=== PATIENT | male | born 1950 | race Asian ===

== ENCOUNTER 2016-08-11 07:30 | Day surgery (SDC) | payer OTHER ==
--- NOTE | 2016-08-02 11:43 | PREOP ---
DATE OF ADMISSION: 08/11/2016 DATE OF DICTATION: 06/15/2016 HISTORY OF PRESENT ILLNESS: The patient is a 65-year-old man admitted through the [facility] for reduction and repair of chronically incarcerated ventral hernia. According to the patient, he has had the hernia for approximately 2 years' time. Recently it has become slightly larger in size and more symptomatic. No underlying GI, , or respiratory complaints to suggest predisposition to hernia formation. PAST MEDICAL HISTORY: Significant only for hypertension. No history of heart disease, diabetes, respiratory, renal or hepatic insufficiency. PAST SURGICAL HISTORY: Nil. ALLERGIES: None known. REGULAR MEDICATIONS: Amlodipine. SOCIAL HISTORY: Negative tobacco, negative alcohol. FAMILY HISTORY: Nil. REVIEW OF SYSTEMS: Nil. PHYSICAL EXAMINATION: Abdomen: Soft, protuberant, nontender. In the supraumbilical midline, there is a bulge which represents a chronically incarcerated ventral hernia. The umbilical ring appears intact. IMPRESSION: Chronically incarcerated ventral hernia. PLAN: Reduction and repair of chronically incarcerated ventral hernia with mesh. Indications, terms, possible complications were reviewed. Consent obtained. The patient will be seen preoperatively by Dr. Shruthi Barbour at [address] [place] [address]. Please refer to his notes for those medical details. Austin BELL/[id number] CC: Shruthi Barbour MD
[2016-08-11 08:10] VITALS: BMI 25.2
[2016-08-11] MEDS ORDERED: TAMSULOSIN HCL 0.4 MG CAP.ER.24H (FP) ONE (08:17)
[2016-08-11] MEDS ORDERED: MIDAZOLAM HCL 2 MG/2 ML SINGLE DOSE VIAL ONE (09:40)
[2016-08-11] MEDS ORDERED: PROPOFOL 20 ML ONE ×2 (09:45)
[2016-08-11] MEDS ORDERED: ROCURONIUM BROMIDE 50 MG/5 ML VIAL ONE (09:45)
[2016-08-11] MEDS ORDERED: ONDANSETRON 4 MG/2 ML VIAL ONE (09:45)
[2016-08-11] MEDS ORDERED: DEXAMETHASONE SOD PHOSPHATE 4 MG/1 ML VIAL ONE (09:45)
[2016-08-11] MEDS ORDERED: ePHEDrine SULFATE 50 MG/1 ML AMPULE ONE (10:13)
[2016-08-11] MEDS ORDERED: NEOSTIGMINE METHYLSULFATE 0.5 MG/ML - 10 ML MDV ONE (10:31)
[2016-08-11] MEDS ORDERED: KETOROLAC TROMETHAMINE 30 MG/1 ML VIAL ONE (10:51)
[2016-08-11] MEDS ORDERED: oxyCODONE HCL 5 MG TABLET ONE (13:13)
[2016-08-11] MEDS ORDERED: oxyCODONE HCL 5 MG TABLET PO PRN (13:40)
[2016-08-11] MEDS ORDERED: ONDANSETRON 4 MG/2 ML VIAL IVPUSH PRN (13:40)
[2016-08-11] MEDS ORDERED: LACTATED RINGERS SOLUTION 1,000 ML IV SCH (13:45)
--- NOTE | 2016-08-11 14:17 | OP ---
DATE OF OPERATION: 08/11/2016 PREOPERATIVE DIAGNOSIS: Incarcerated ventral hernia. POSTOPERATIVE DIAGNOSIS: Incarcerated ventral hernia. PROCEDURE: Open reduction and repair incarcerated ventral hernia with mesh/intermediate (8 cm). OPERATING SURGEON: Forrest Rivas M.D. MARKET REPORTER: Nate Martin DO ANESTHESIA: Sudarshan Aldridge MD (general) HISTORY: A 65-year-old man admitted to the hospital for reduction and repair of a chronically incarcerated ventral hernia, which is symptomatic. INDICATIONS: Alternatives and possible complications reviewed. Consent was obtained. PROCEDURE: With the patient in the supine position, and after general anesthesia, the abdomen was prepped and draped in sterile fashion using chlorhexidine. A 5 cm transverse incision was made directly over the hernia and deepened into the subcutaneous space. The hernia sac was easily encountered and cleaned to the level of the fascial ring. The fascial ring was incised circumferentially. The hernia sac with its fibrofatty contents were reduced. The retrorectus/preperitoneal space was then developed using sharp dissection, creating enough room for placement of an underlying mesh. Ultimately, a Bard Ventralux hernia patch measuring 8 cm in diameter was selected for the repair. The patch was placed in the retrorectus/preperitoneal space and pulled up against the undersurface of the anterior abdominal wall musculature using its straps. The mesh was tacked on with 0 Prolene through and through sutures, fashioning of the mesh in each quadrant to the overlying rectus muscle. After adequate hemostasis and irrigation, the anterior fascia was closed in a transverse fashion using interrupted No. 1 Vicryl sutures, leaving the mesh entirely in the retrorectus space. Subcutaneous tissues were irrigated. Adequate hemostasis ensured. The wound was closed in layers. The subcutaneous tissue was approximated using interrupted 3- 0 Chromic. 4-0 Biosyn sutures interrupted subcuticular sutures placed. The skin was closed using 4-0 Biosyn subcuticular continuous fashion. Dermabond applied. Procedure terminated. Needle and sponge count correct. ESTIMATED BLOOD LOSS: Minimal. SPECIMEN: None. DRAIN: None. IMPLANT: Bard Ventralux ST hernia patch (8 cm diameter). Austin BELL/[id number] MTDD
[2016-08-11] MEDS ORDERED: TAMSULOSIN HCL 0.4 MG CAP.ER.24H (FP) PO ONE (20:30)
[2016-08-11 22:51] VITALS: BP 141/87; PULSE 100; TEMP 98.8
== END 2016-08-11 22:56 | disposition home or self-care (01) ==
LOC: FASU 07:30
PROVIDERS: ATTEND Surgery
PROC: 0WUF0JZ Supplement Abdominal Wall with Synthetic Substitute, Open Approach (ICD-10-PCS; principal; 2016-08-11 10:15)
DX: K43.6 Other and unspecified ventral hernia with obstruction, without gangrene (principal)
CPT/HCPCS: 94010; 94760

== ENCOUNTER 2016-08-15 22:44 | Emergency (ER) | payer OTHER ==
[2016-08-15 22:53] VITALS: BMI 25.3
[2016-08-15 23:07] LABS: PH,URINE 5.5 (4.5-8); URINE APPEARANCE Clear; URINE BILIRUBIN Negative (NEGATIVE); URINE GLUCOSE (UA) Negative (NEGATIVE); URINE KETONE Negative (NEGATIVE); URINE LEUK ESTERASE Trace (NEGATIVE); URINE NITRITE Negative (NEGATIVE); URINE PROTEIN Negative (NEGATIVE); URINE UROBILINOGEN 0.2 E.U/dl (0.2-1.0)
[2016-08-15 23:08] LABS: URINE BLOOD 2+ (NEGATIVE); URINE COLOR YELLOW
--- NOTE | 2016-08-15 23:17 | PDOC ---
History of Present Illness - General Chief Complaint: Pain, Acute Stated Complaint: PAIN WITH URINATION POST HERNIA SURGERY Time Seen by Provider: 08/15/16 23:16 - History of Present Illness Initial Comments: 08/16/16 05:39 4 days post op, complains of dysuria. Small urine volumes. No BM x 1 day. Vomit x 1. Has not been able to take his anti-htn. On opioids for pain. No fever. Mild abd pain. Feet are swollen pmh: htn fhx: non-contrib ros: reviewed and otherwise negative NAD no diaphoresis nonicteric mmm nl JVP rrr cta abd distended, tympamic over upper abd, dull over lower abd, well healing periumbilical surgical scar, nontender no CVAT no groin lesions no edema nl speech, nl gait POCUS--large distended bladder barth placed by me, sterile technique, with 2L urine output plain films--full of stool, ileus versus partial sbo, as read by me, referred to radiology for definitive review fluid challenge in ED--tolerated PO without difficulty a/p post-op urinary retention. barth, leg bag, maintain adequate oral hydration ileus/ constipation--likely secondary to opioids. laxatives, adequate po hydration. return to ED for another episode of vomiting Past History - Past Medical History Allergies/Adverse Reactions: Allergies Allergy/AdvReac Type Severity Reaction Status Date / Time No Known Allergies Allergy Verified 08/15/16 22:46 Home Medications: Ambulatory Orders Amlodipine Besylate 5 mg PO HS 08/04/16 Atorvastatin Ca [Lipitor] 20 mg PO HS 08/04/16 Oxycodone HCl/Acetaminophen [Percocet 5-325 mg Tablet] 1 tab PO Q4H PRN #42 tablet MDD 6 08/11/16 Anemia: No Asthma: No Cancer: No Cardiac Disorders: No CVA: No COPD: No CHF: No Dementia: No Diabetes: No GI Disorders: No Disorders: No HTN: Yes Hypercholesterolemia: Yes Liver Disease: No Seizures: No Thyroid Disease: No - Surgical History Abdominal Surgery: No Appendectomy: No Cardiac Surgery: No Cholecystectomy: No Lung Surgery: No Neurologic Surgery: No Orthopedic Surgery: No - Psycho/Social/Smoking Cessation Hx Anxiety: No Suicidal Ideation: No Smoking History: Never smoked Have you smoked in the past 12 months: No Information on smoking cessation initiated: No Hx Alcohol Use: No Drug/Substance Use Hx: No Substance Use Type: None Hx Substance Use Treatment: No *Physical Exam - Vital Signs Last Vital Signs Temp Pulse Resp BP Pulse Ox 98 F 114 H 20 169/107 97 08/15/16 22:48 08/15/16 22:48 08/15/16 22:48 08/15/16 22:48 08/15/16 22:48 ED Treatment Course - ADDITIONAL ORDERS Additional order review: Laboratory Results 08/15/16 22:59 Urine Color Yellow Urine Appearance Clear Urine pH 5.5 Ur Specific [place] <= 1.005 Urine Protein Negative Urine Glucose (UA) Negative Urine Ketones Negative Urine Blood 2+ H Urine Nitrite Negative Urine Bilirubin Negative Urine Urobilinogen 0.2 e.u/dl Ur Leukocyte Esterase Trace *DC/Admit/Observation/Transfer Diagnosis at time of Disposition: Urinary tract obstruction Constipation Qualifiers: Constipation type: unspecified constipation type Qualified Code(s): K59.00 - Constipation, unspecified - Discharge Dispostion Disposition: HOME Condition at time of disposition: Stable - Patient Instructions Printed Discharge Instructions: DI for Constipation, How to Care for Your Barth Catheter -- Male
[2016-08-15 23:19] LABS: URINE BACTERIA FEW /hpf (NEGATIVE)
[2016-08-16 00:20] VITALS: BP 155/104; PULSE 107; TEMP 98
[2016-08-16] MEDS ORDERED: MAGNESIUM CITRATE 300 ML BOTTLE ONE (00:22)
== END 2016-08-16 00:45 | disposition home or self-care (01) ==
LOC: FER 22:44
PROC: 0T9B70Z Drainage of Bladder with Drainage Device, Via Natural or Artificial Opening (ICD-10-PCS; principal; 2016-08-15)
DX: N13.8 Other obstructive and reflux uropathy (principal); K59.03 Drug induced constipation; T40.2X5A Adverse effect of other opioids, initial encounter; Y92.018 Other place in single-family (private) house as the place of occurrence of the external cause
CPT/HCPCS: 74020-TC; 81003; 81015; 99281-25

== ENCOUNTER 2016-08-17 22:37 | Emergency (ER) | payer OTHER ==
--- NOTE | 2016-08-17 22:45 | PDOC ---
History of Present Illness - General Chief Complaint: Urinary Problem Stated Complaint: URINARY RETENTION Time Seen by Provider: 08/17/16 22:39 History Source: Patient Exam Limitations: No Limitations - History of Present Illness Initial Comments: 08/17/16 22:40 65 Y M HTN, s/p hernia repair on 08/11. urinary retention 08/15. barth removed today at 1 pm. returns c/o pain and inability to void. no fever. no n/v. Past History - Past Medical History Allergies/Adverse Reactions: Allergies Allergy/AdvReac Type Severity Reaction Status Date / Time No Known Allergies Allergy Verified 08/15/16 22:46 Home Medications: Ambulatory Orders Amlodipine Besylate 5 mg PO HS 08/04/16 Atorvastatin Ca [Lipitor] 20 mg PO HS 08/04/16 Oxycodone HCl/Acetaminophen [Percocet 5-325 mg Tablet] 1 tab PO Q4H PRN #42 tablet MDD 6 08/11/16 Anemia: No Asthma: No Cancer: No Cardiac Disorders: No CVA: No COPD: No CHF: No Dementia: No Diabetes: No GI Disorders: No Disorders: No HTN: Yes Hypercholesterolemia: Yes Liver Disease: No Seizures: No Thyroid Disease: No - Surgical History Abdominal Surgery: No Appendectomy: No Cardiac Surgery: No Cholecystectomy: No Lung Surgery: No Neurologic Surgery: No Orthopedic Surgery: No - Psycho/Social/Smoking Cessation Hx Anxiety: No Suicidal Ideation: No Smoking History: Never smoked Have you smoked in the past 12 months: No Hx Alcohol Use: No Drug/Substance Use Hx: No Substance Use Type: None Hx Substance Use Treatment: No Review of Systems - Review of Systems Able to Perform ROS?: Yes Is the patient limited [place] proficient: No Constitutional: No: Symptoms Reported Respiratory: No: Symptoms reported Cardiac (ROS): No: Symptoms Reported ABD/GI: No: Symptoms Reported : Yes: Symptoms Reported, See HPI, Dysuria Integumentary: No: Symptoms Reported All Other Systems: Reviewed and Negative *Physical Exam - Physical Exam General Appearance: Yes: Nourished, Appropriately Dressed. No: Apparent Distress Respiratory/Chest: positive: Lungs Clear Cardiovascular: positive: Regular Rhythm, Regular Rate Gastrointestinal/Abdominal: positive: Normal Bowel Sounds. negative: Tender ( after barth placement) Musculoskeletal: positive: Normal Inspection. negative: CVA Tenderness Neurologic: positive: Fully Oriented, Alert, Normal Mood/Affect, Normal Response , Motor Strength 5/5 Progress Note - Progress Note Progress Note: recurrent urinary retention (1.5 lt) keep barth f/u w/ pmd *DC/Admit/Observation/Transfer Diagnosis at time of Disposition: Urinary tract obstruction - Discharge Dispostion Disposition: HOME Condition at time of disposition: Improved - Patient Instructions Additional Instructions: KEEP BARTH CATHETER CALL YOUR DOCTOR TOMORROW RETURN IF FEVER OR NEW SYMPTOMS
[2016-08-17 22:49] VITALS: BP 152/108; PULSE 113; TEMP 97.9; BMI 25.3
== END 2016-08-17 22:58 | disposition home or self-care (01) ==
LOC: FER 22:37
PROC: 0T9B70Z Drainage of Bladder with Drainage Device, Via Natural or Artificial Opening (ICD-10-PCS; principal; 2016-08-17)
DX: N13.9 Obstructive and reflux uropathy, unspecified (principal); I10 Essential (primary) hypertension; E78.00 Pure hypercholesterolemia, unspecified
CPT/HCPCS: 99282-25

== ENCOUNTER 2016-08-20 21:41 | Emergency (ER) | payer OTHER ==
[2016-08-20 22:00] VITALS: BP 167/94; PULSE 95; TEMP 98; BMI 25.3
--- NOTE | 2016-08-20 22:09 | PDOC ---
History of Present Illness - General Chief Complaint: Urinary Problem Stated Complaint: URINARY RETENTION Time Seen by Provider: 08/20/16 21:53 History Source: Patient Exam Limitations: No Limitations - History of Present Illness Initial Comments: 08/20/16 22:06 This is a 65-year-old male who is status post bilateral hernia repair approximately 9 days ago. Patient has been to this emergency room 3 times approximately every other day since the hernia repair for acute urinary retention. Between ER visits patient does go see a urologist to removes the Jose and then patient is back the next day with urinary retention. The urologist told the patient to self catheterize until he is no longer experiencing urinary retention. Patient did catheterize himself this afternoon and there was actually 1500 mL of urine that was removed from the bladder. Patient now comes in complaining of suprapubic pain and discomfort and sensation that he needs to urinate and can't urinate. Patient said when he is able to urinate he does experience some burning and dysuria with urination. Patient denies any hematuria Family is requesting that the Jose be put back in. They also are requesting referral to a different urologist as they feel that the urologist he is seeing is not adequately addressing the problem. PAST MEDICAL HISTORY: no significant history PAST SURGICAL HISTORY: no significant history FAMILY HISTORY: no pertinant history SOCIAL HISTORY: Pt lives with family and is employed. MEDICATIONS: reviewed ALLERGIES: As per nursing notes Review of Systems General: No fevers or chills, no weakness, no weight loss HEENT: No change in vision. No sore throat,. No ear pain CardioVascular: No chest pain or shortness of breath Respiratory:No cough, or wheezing. Gastrointestinal: no nausea, vomitting, diarrhea or constipation, No rectal bleeding Genitourinary urinary retention as per history of present illness Musculoskeletal: No joint or muscle pain or swelling Neurologic: No headache, vertigo, dizziness or loss of consciousness Psychiatric: nor depression Skin: No rashes or easy bruising Endocrine: no increased thirst or abnormal weight change Allergic: no skin or latex allergy All other systems reviewed and normal GENERAL: The patient is awake, alert, and fully oriented, in no acute distress. HEAD: Normal with no signs of trauma. EYES: Pupils equal, round and reactive to light, extraocular movements intact, sclera anicteric, conjunctiva clear. ABDOMEN: There is some mild suprapubic discomfort on palpation, there is no guarding or rebound, bowel sounds are normal BACK: There is no CVA or flank tenderness. EXTREMITIES: Normal range of motion, no edema. NEUROLOGICAL: Normal speech, normal gait. PSYCH: Normal mood, normal affect. SKIN: Warm, Dry, normal turgor, no rashes or lesions noted. 08/20/16 22:19 Assessment and plan: This is a 65-year-old male who comes in with acute urinary retention. This is his third visit in approximately one week. Patient had Jose reinserted with approximately 1 L of clear urine. Urinalysis shows no evidence of infection at this time. Patient has seen his urologist and was started on Flomax. Patient had a basic metabolic profile sent which was normal with the exception of a potassium of 3.4. Patient was told to eat a banana a day for the next week and was discharged home and given referral to a different urologist as he had requested a different referral Past History - Past Medical History Allergies/Adverse Reactions: Allergies Allergy/AdvReac Type Severity Reaction Status Date / Time No Known Allergies Allergy Verified 08/17/16 22:42 Home Medications: Ambulatory Orders Amlodipine Besylate 5 mg PO HS 08/04/16 Atorvastatin Ca [Lipitor] 20 mg PO HS 08/04/16 Oxycodone HCl/Acetaminophen [Percocet 5-325 mg Tablet] 1 tab PO Q4H PRN #42 tablet MDD 6 08/11/16 Tamsulosin HCl [Flomax] 0.4 mg PO HS 08/17/16 Anemia: No Asthma: No Cancer: No Cardiac Disorders: No CVA: No COPD: No CHF: No Dementia: No Diabetes: No GI Disorders: No Disorders: No HTN: Yes Hypercholesterolemia: Yes Liver Disease: No Seizures: No Thyroid Disease: No - Surgical History Abdominal Surgery: No Appendectomy: No Cardiac Surgery: No Cholecystectomy: No Lung Surgery: No Neurologic Surgery: No Orthopedic Surgery: No - Psycho/Social/Smoking Cessation Hx Anxiety: No Suicidal Ideation: No Smoking History: Never smoked Have you smoked in the past 12 months: No Hx Alcohol Use: No Drug/Substance Use Hx: No Substance Use Type: None Hx Substance Use Treatment: No *Physical Exam - Vital Signs Last Vital Signs Temp Pulse Resp BP Pulse Ox 98.0 F 95 H 16 167/94 99 08/20/16 21:43 08/20/16 21:43 08/20/16 21:43 08/20/16 21:43 08/20/16 21:43 ED Treatment Course - LABORATORY CBC & Chemistry Diagram: 08/20/16 22:31 *DC/Admit/Observation/Transfer Diagnosis at time of Disposition: Urinary retention - Discharge Dispostion Disposition: HOME Condition at time of disposition: Good Admit: No - Patient Instructions Additional Instructions: Leave the Jose in place until you see the urologist. Your potassium was a little bit low so bananas are high in potassium and eat a banana a day for the next week. You see your doctor have your potassium rechecked If you want to change a urologist call Dr. Casey [phone] on Tuesday or tomorrow for an appointment. Return to the emergency department immediately with ANY new, persistent or worsening symptoms. Continue any medications as previously prescribed by your physician. You should follow up with your primary doctor as soon as possible regarding today's emergency department visit. . Please make sure your doctor reviews the results of your emergency evaluation. Thank you for coming to the Emergency Department today for your care. It was a pleasure to see you today. Please note that your evaluation is INCOMPLETE until you follow-up with your doctor.
[2016-08-20 22:12] LABS: URINE APPEARANCE Clear; URINE BILIRUBIN Negative (NEGATIVE); URINE GLUCOSE (UA) Negative (NEGATIVE); URINE KETONE Negative (NEGATIVE); URINE LEUK ESTERASE Negative (NEGATIVE); URINE NITRITE Negative (NEGATIVE); URINE PROTEIN Negative (NEGATIVE); URINE UROBILINOGEN 0.2 E.U/dl (0.2-1.0)
[2016-08-20 22:17] LABS: URINE BLOOD 2+ (NEGATIVE); URINE COLOR YELLOW
[2016-08-20 22:50] LABS: URINE BACTERIA MODERATE /hpf (NEGATIVE); URINE WBC 0-2 (3-5)
[2016-08-20 22:53] LABS: CALCIUM 9.1 mg/dl (8.4-10.2)
== END 2016-08-20 23:09 | disposition home or self-care (01) ==
LOC: FER 21:41
PROC: 0T9B70Z Drainage of Bladder with Drainage Device, Via Natural or Artificial Opening (ICD-10-PCS; principal; 2016-08-20)
DX: R33.9 Retention of urine, unspecified (principal); I10 Essential (primary) hypertension; E78.00 Pure hypercholesterolemia, unspecified
CPT/HCPCS: 36415; 80048; 81003; 81015; 87086; 87186; 99283-25

== ENCOUNTER 2016-10-06 05:08 | Day surgery (SDC) | payer OTHER ==
[2016-10-04 14:41] VITALS: BMI 25.5
[2016-10-06] MEDS ORDERED: MIDAZOLAM HCL 2 MG/2 ML SINGLE DOSE VIAL ONE (12:09)
[2016-10-06] MEDS ORDERED: ceFAZolin SODIUM 1 GM VIAL ONE (12:30)
[2016-10-06] MEDS ORDERED: ceFAZolin SODIUM 1 GM VIAL IVPB ONE (12:31)
[2016-10-06] MEDS ORDERED: PROPOFOL 20 ML ONE ×2 (12:33)
[2016-10-06] MEDS ORDERED: oxyCODONE HCL 5 MG TABLET PO PRN (14:20)
[2016-10-06] MEDS ORDERED: ONDANSETRON 4 MG/2 ML VIAL IVPUSH PRN (14:23)
--- NOTE | 2016-10-06 14:25 | OP ---
Operative Note - Note: Operative Date: 10/06/16 Pre-Operative Diagnosis: Urinary retention and BPH Operation: TURP Findings: Large OBstructive prostate Post-Operative Diagnosis: Same as Pre-op Surgeon: Carmen Coronado Anesthesia: Spinal Specimens Removed: Prostate Estimated Blood Loss (mls): 50 Drains & Tubes with Location: [address]
[2016-10-06] MEDS ORDERED: DEXTROSE 5%-0.45% SALINE 1,000 ML IV SCH (14:30)
[2016-10-06] MEDS ORDERED: LACTATED RINGERS SOLUTION 1,000 ML IV SCH (14:30)
--- NOTE | 2016-10-06 16:31 | OP ---
DATE OF OPERATION: 10/06/2016 SURGEON: Carmen Coronado MD ANESTHESIA: Spinal. PREOPERATIVE DIAGNOSIS: Urinary retention and benign prostatic hypertrophy. POSTOPERATIVE DIAGNOSIS: Urinary retention and benign prostatic hypertrophy. PROCEDURE: Plasma button transurethral resection of the prostate. FINDINGS: A very large prostate completely obstructive in nature was noted. Trilobar hypertrophy with a very large median lobe and subtrigonal lobe noted. Both ureteral orifices were found to be pretty close to the bladder neck. Prostatic urethra is about 5.5 cm in length. Veru was noted in the normal position. DESCRIPTION OF PROCEDURE: Patient in lithotomy position under spinal anesthesia was prepped and draped in the usual manner. Using 26 Woods resectoscope and [facility] plasma button, the median bore and subtrigonal lobe were lasered first using the plasma button. Vaporization of the middle lobe carried out, then, the lateral lobes. At the end of the procedure, a good channel was noted. Severe bleeding noted throughout the procedure, and most of the bleeding was controlled using the coagulation. At the end of the procedure, the prostate lateral lobes were found to be extending beyond the veru, and they were left alone for fear of incontinence. At the end of the procedure, a good channel was noted, and the bladder was filled and the scope was removed. A good flow of urine noted. A 24 Jose was left indwelling. Continuous irrigation started. Patient tolerated the procedure well, left the operating room in satisfactory condition. Austin [id number]
[2016-10-06] MEDS: CEFAZOLIN (PRE-DOCKED) 50 ML IVPB SCH (18:23)
[2016-10-06] MEDS ORDERED: oxyCODONE HCL 5 MG TABLET ONE (19:42)
[2016-10-06] MEDS ORDERED: HEPARIN NA (PORCINE) 5,000 UNITS/ML 1ML VIAL ONE (21:28)
[2016-10-06] MEDS: IBUPROFEN 800 MG/8 ML IJ IVPB PRN (23:34)
[2016-10-07] MEDS ORDERED: PT OWN MED DRAWER 7, Y5N ONE (01:28)
[2016-10-07] MEDS: CEFAZOLIN (PRE-DOCKED) 50 ML IVPB SCH ×2 (01:30→10:29)
--- NOTE | 2016-10-07 08:40 | PN ---
Progress Note (short form) - Note Progress Note: vss CTA S1-S2 ABDOMEN SOFT, NT BS POS LABS REVIWED A/P urolog stable for d/c to f/u in office at 9am for d/c tab
--- NOTE | 2016-10-07 10:24 | PN ---
Progress Note (short form) - Note Progress Note: Doing well. Urine clear, abd soft. For discharge today. Progress satisfactory.
[2016-10-07 10:59] VITALS: PULSE 79
[2016-10-07] MEDS: IBUPROFEN 800 MG/8 ML IJ IVPB PRN (11:23)
[2016-10-07 12:42] VITALS: BP 138/79; TEMP 98.4
--- NOTE | 2016-10-08 11:19 | PATH ---
Surgical Pathology Report Patient Name: ALEKSEY DE LA CRUZ [facility]. Rec. #: [id number] /Age/Gender: 1950 (Age: 66) / M Account: [id number] Location: AMBULATORY SURG Taken: 10/07/2016 Received: 10/07/2016 Reported: 10/08/2016 Physicians: Carmen Coronado M.D. Specimen(s) Received PROSTATE CHIPS Clinical History Hypertrophy of prostate Final Diagnosis PROSTATE, TUR: BENIGN PROSTATIC HYPERPLASIA WITH FOCAL ACUTE INFLAMMATION AND ATROPHY. Electronically Signed Donta Mcclure M.D. Gross Description Received in formalin labelled "prostate chips" is a 4 gram, 3 x 2 x 0.5 cm aggregate of rubbery valencia tissue fragments and clotted blood. Totally submitted in 4 cassettes. [facility]/10/07/2016 [facility]/10/07/2016
== END 2016-10-07 13:22 | disposition home or self-care (01) ==
LOC: JASUSAT 05:08 → JASU-SURG 05:08 → J8W 16:15 → JASUSAT 10-07 13:22
PROVIDERS: ATTEND Urology
PROC: 0VT08ZZ Resection of Prostate, Via Natural or Artificial Opening Endoscopic (ICD-10-PCS; principal; 2016-10-06 14:30)
DX: N40.1 Benign prostatic hyperplasia with lower urinary tract symptoms (principal); R33.8 Other retention of urine
CPT/HCPCS: 88305-TC; 94760; J1644

== ENCOUNTER 2018-09-07 09:46 | Emergency (ER) | payer OTHER ==
--- NOTE | 2018-09-07 09:51 | PDOC ---
History of Present Illness - General Chief Complaint: Cold Symptoms Stated Complaint: COLD HEADACHE COUGH Time Seen by Provider: 09/07/18 09:50 History Source: Patient Exam Limitations: No Limitations - History of Present Illness Initial Comments: Pt is a 67 yo M, with PMH of HTN, HLD, b/l hernia repair, and obstructive prostate/TURP, who is presenting with complaints of dry cough, mild frontal headache, and subjective chills since yesterday morning when he woke up. The pt states his daughter had similar symptoms last week and was treated with Zithromax. Pt took Tylenol yesterday throughout the day which helped with his symptoms. Pt has not contacted his PCP for this issue as "they did not have appointment times". Pt denies any vision changes, syncope, chest pain, palpitations, SOB, nausea/vomiting, abdominal pain, urinary symptoms, diarrhea/ constipation, or leg swelling. Social: Pt denies any cigarette, alcohol, or drug use. Pt denies any recent travel. Daughter was sick last week with similar symptoms, neither received flu shots. Surgical: obstructive prostate/urinary retention - TURP. Family: no relevant history. 09/07/18 10:18 Past History - Travel Traveled outside of the country in the last 30 days: No Close contact w/someone who was outside of country & ill: No - Past Medical History Allergies/Adverse Reactions: Allergies Allergy/AdvReac Type Severity Reaction Status Date / Time No Known Allergies Allergy Verified 09/07/18 09:54 Home Medications: Ambulatory Orders Irbesartan 150 mg PO DAILY 09/07/18 Anemia: No Asthma: No Cancer: No Cardiac Disorders: No CVA: No COPD: No CHF: No Dementia: No Diabetes: No GI Disorders: No Disorders: No HTN: Yes Hypercholesterolemia: Yes Liver Disease: No Seizures: No Thyroid Disease: No - Surgical History Abdominal Surgery: No Appendectomy: No Cardiac Surgery: No Cholecystectomy: No Lung Surgery: No Neurologic Surgery: No Orthopedic Surgery: No - Suicide/Smoking/Psychosocial Hx Smoking History: Never smoked Have you smoked in the past 12 months: No Hx Alcohol Use: No Drug/Substance Use Hx: No Substance Use Type: None Hx Substance Use Treatment: No Review of Systems - Review of Systems Able to Perform ROS?: Yes Is the patient limited Kinyarwanda proficient: No Constitutional: Yes: Chills (subjective), Loss of Appetite, Weight Stable. No: Diaphoresis, Fever, Malaise, Weakness HEENTM: No: Recent change in vision, Nose Congestion, Hearing Loss, Throat Pain , Throat Swelling, Difficulty Swallowing Respiratory: Yes: Cough, Productive cough. No: Orthopnea, Shortness of Breath, Stridor, Wheezing, Hemoptysis Cardiac (ROS): No: Chest Pain, Edema, Irregular Heart Rate, Lightheadedness, Palpitations, Syncope, Chest Tightness ABD/GI: Yes: Poor Appetite (since yesterday when symptoms started), Poor Fluid Intake. No: Constipated, Diarrhea, Nausea, Vomiting, Abdominal cramping : No: Burning, Dysuria, Frequency, Pain, Urgency Musculoskeletal: No: Back Pain, Joint Pain, Joint Swelling, Muscle Weakness Integumentary: No: Rash Neurological: Yes: Headache (mild frontal headache). No: Weakness, Unsteady Gait Psychiatric: No: Sleep Pattern Change, Change in Appetite Endocrine: No: Increased Urine, Change in Weight Hematologic/Lymphatic: No: Anemia, Blood Clots, Easy Bleeding, Easy Bruising All Other Systems: Reviewed and Negative *Physical Exam - Physical Exam Comments: Pt afebrile, but hypertensive (will reassess vitals once pt is more calm, appears anxious). Pt in NAD, normal body habitus. PE showed pt alert and oriented. edge beader generally intact, muscular strength and sensation intact. Oropharynx without erythema or exudates. No nasal congestion, hearing intact. Clear heart sounds, S1/S2, no JVD, b/l pedal edema, or heart murmur. Clear lung sounds, but diminished on the L lung olivarez, anterior and posterior. No respiratory distress, wheezes, crackles, or accessory muscle use. No abdominal or CVA tenderness to palpation, no rebound, no guarding. Abdomen soft, non- distended, and with normoactive bowel sounds. Skin without jaundice or rash. 09/07/18 10:14 Medical Decision Making - Medical Decision Making Pt was seen at bedside, also will be seen by attending Dr. Perez. Pt presenting with complaints of dry cough, mild frontal headache, and subjective chills since yesterday morning when he woke up. The pt states his daughter had similar symptoms last week and was treated with Zithromax. Pt took Tylenol yesterday throughout the day which helped with his symptoms. Pt has not contacted his PCP for this issue as "they did not have appointment times". Pt denies any vision changes, syncope, chest pain, palpitations, SOB, nausea/ vomiting, abdominal pain, urinary symptoms, diarrhea/constipation, or leg swelling. Pt afebrile, but hypertensive (will reassess vitals once pt is more calm, appears anxious). Pt in NAD, normal body habitus. PE showed pt alert and oriented. edge beader generally intact, muscular strength and sensation intact. Oropharynx without erythema or exudates. No nasal congestion, hearing intact. Clear heart sounds, S1/S2, no JVD, b/l pedal edema, or heart murmur. Clear lung sounds, but diminished on the L lung olivarez, anterior and posterior. No respiratory distress, wheezes, crackles, or accessory muscle use. No abdominal or CVA tenderness to palpation, no rebound, no guarding. Abdomen soft, non- distended, and with normoactive bowel sounds. Skin without jaundice or rash. Considering pneumonia vs viral URI vs bronchitis vs pleural effusion vs cardiac/ ACS (HTN, new dyspnea) Ordered work-up including influenza swab, ecg, and chest x-ray. Provided 650 mg PO tylenol for improvement of discomfort. Will continue to reassess pt and monitor for symptomatic improvement. 09/07/18 10:11 ECG: NSR, intervals WNL. No TWIs or significant ST segment changes. No significant changes from prior ECG. 09/07/18 10:16 Pt being taken for chest x-ray. Tylenol provided. 09/07/18 10:21 [id number] RAD/CHEST PA & LAT Cough. Chest x-ray, PA and lateral No prior is available for comparison. The cardiac silhouette is within normal limits in size with mild atherosclerotic unfolding of the aortic arch. Mild elevation of the right hemidiaphragm. There are mild bilateral increased interstitial markings, bilaterally. Tiny nodularity in the left mid and lower lung which is nonspecific. There is a 2.2 cm round nodular opacity projecting over the mid chest, anteriorly on the lateral view despite of which is not clear. It may be on the left side. Mediastinum and visualized osseous structures appear intact. IMPRESSION: 2.2 cm round nodular opacity projecting over the mid chest, anteriorly essentially seen on the lateral view only and for which correlation with CT scan of the chest is recommended for further evaluation Will order non-contrast CT scan of the chest to get a better view of the nodular opacity. Vital signs improved, BP 160/100, RR 12, O2 sat 100% on RA, HR 95 09/07/18 11:02 Pt is Influenza A positive. Pending read of CT chest. 09/07/18 13:03 [id number] CT/CHEST CT WITHOUT CONTRAST INDICATION: Nodularity may chest TECHNIQUE: Helical images of the chest were obtained noncontrast . COMPARISON: None FINDINGS: LUNGS: A 2 x 2 x 2 cm nodule is identified within the lingula. This nodule soft tissue density. Malignancy not excluded. Dependent atelectasis present at the right base. No endobronchial lesions are seen. Minimal scarring is identified within the right upper lobe. No other suspicious lung nodules seen. No endobronchial lesions are identified. PLEURA: Negative MEDIASTINUM: 8 mm AP window lymph node is noted. Gynecomastia. CARDIAC: The heart is normal in size. OTHER: Hepatic steatosis. 1.4 cm left adrenal adenoma. No aggressive bone lesions seen. IMPRESSION: Left lung nodule as described above. Malignancy to be excluded. Consider PET/CT. Additional comments noted above. Findings communicated to the ED at the time of this dictation. 09/07/18 13:[address] Hawkins (PCP) -- [phone] -- who will see the pt in clinic. Pt provided with copies of chest x-ray and CT scan to take to appointment. Pt can be discharged to home with follow-up. Pt advised to follow-up with PCP in 1-2 days. Strict return precautions provided with pt understanding. 09/07/18 14:25 *DC/Admit/Observation/Transfer Diagnosis at time of Disposition: Influenza A, Pulmonary nodule - Discharge Dispostion Disposition: HOME Condition at time of disposition: Good Decision to Admit order: No - Referrals Referrals: Al Barbour MD [Non Staff, Medical] - - Patient Instructions Printed Discharge Instructions: DI for Influenza -- Adult Additional Instructions: You were seen in the ER today for cough and fever. The results of your labs and imaging today showed influenza (the flu). You also had a lung nodule on the left side, which should be followed-up by your regular doctor for further tests. Please follow-up with your primary care doctor within 1-2 days to discuss your visit and make sure your symptoms have improved. Please return to the ER if you have any worsening pain, development of fevers or chills, loss of consciousness, shortness of breath, inability to tolerate food or fluids, or any other concerns. - Post Discharge Activity
[2018-09-07 10:01] VITALS: PULSE 100; TEMP 98.7; BMI 26.2
[2018-09-07] MEDS ORDERED: ACETAMINOPHEN 325 MG TABLET (FP) PO ONE (10:04)
[2018-09-07] MEDS ORDERED: ACETAMINOPHEN 325 MG TABLET (FP) ONE (10:08)
--- NOTE | 2018-09-07 10:08 | PDOC ---
Attending Attestation - Resident Resident Name: Елена Jose - ED Attending Attestation I have performed the following: I have examined & evaluated the patient, The case was reviewed & discussed with the resident, I agree w/resident's findings & plan, Exceptions are as noted - HPI HPI: 09/07/18 11:06 67 yo male h/o HTN ( takes meds at night) here with c/o cough congestion, cough nonproductive and mild frontal headahce. post tussive headache. no n/v no f/c did have a sick contact of a daughter who was sick with uri ( treated with zpak ) one week ago. no recent travel. no flu shot this year. no other complaints. - Physicial Exam PE: 09/07/18 11:08 awake alert lungs clear bilaterally. heart rrr no mrg abd soft nt nd. ext wwp no edema. no calf tenderness. skin warm and dry. nuero alert oriented x 3 moves all four ext. speech clear. - Medical Decision Making 09/07/18 11:09 67 yo male here with cough congestion. differential uri, pna, influenzae. beck check flu swab cxr. ekg
[2018-09-07 11:28] VITALS: BP 160/100
--- NOTE | 2018-09-08 12:44 | EKG ---
Test Reason : Blood Pressure : / mmHG Vent. Rate : 092 BPM Atrial Rate : 092 BPM P-R Int : 176 ms QRS Dur : 100 ms QT Int : 372 ms P-R-T Axes : 050 -25 054 degrees QTc Int : 460 ms NORMAL SINUS RHYTHM NORMAL ECG WHEN COMPARED WITH ECG OF 30-SEP-2016 08:28, NO SIGNIFICANT CHANGE WAS FOUND Confirmed by KASSANDRA FRANCO MD ([id number]) on 09/08/2018 12:43:40 PM Referred By: ERIKA POLANCO Confirmed By:KASSANDRA FRANCO MD
== END 2018-09-07 14:25 | disposition home or self-care (01) ==
LOC: FER 09:46
DX: J09.X2 Influenza due to identified novel influenza A virus with other respiratory manifestations (principal); R91.1 Solitary pulmonary nodule
CPT/HCPCS: 71046-TC-FY; 71250-TC; 87804; 93005; 99282-25

== ENCOUNTER 2019-11-04 09:05 | Emergency (ER) | payer OTHER ==
[2019-11-04 09:18] VITALS: BMI 25.0
[2019-11-04 09:32] VITALS: BP 168/97; TEMP 98.5
[2019-11-04 10:36] LABS: BASO % 0.4 % (0-2.0); HEMATOCRIT 42.3 % (35.4-49); HEMOGLOBIN 14.4 GM/dl (11.7-16.9); LYMPH % 12.5 % (8-40); MCH 27.5 pg (25.7-33.7); MCHC 34.1 g/dl (32.0-35.9); MEAN CELL VOLUME 80.8 fl (80-96); MEAN PLT VOLUME 7.7 fl (7.5-11.1); MONO % 5.7 % (3.8-10.2); NEUT % 81.4 % (42.8-82.8); PLATELET COUNT 177 K/MM3 (134-434); RBC 5.23 M/mm3 (4.00-5.60); RDW 14.1 % (11.9-15.9); WHITE BLOOD COUNT 7.9 K/mm3 (4.0-10.8)
[2019-11-04 10:46] LABS: ALBUMIN 3.7 g/dl (3.4-5.0); CALCIUM 8.7 mg/dl (8.5-10); TOT PROT 6.7 g/dl (6.4-8.2)
[2019-11-04 10:53] LABS: EPITHELIAL CELLS FEW /hpf
[2019-11-04 11:49] VITALS: PULSE 89
== END 2019-11-04 11:40 | disposition home or self-care (01) ==
LOC: FER 09:05
DX: N41.9 Inflammatory disease of prostate, unspecified (principal)
CPT/HCPCS: 36415; 71045-TC-FY; 74176-TC; 80053; 81003; 81015; 85025; 87086; 99284-25

== ENCOUNTER 2022-08-05 04:59 | Emergency (ER) | payer OTHER ==
[2022-08-05 05:10] VITALS: BMI 26.9
[2022-08-05] MEDS ORDERED: LIDOCAINE HCL 2% JELLY 10 ML CARTRIDGE ONE (05:30)
[2022-08-05 10:50] VITALS: BP 142/80; PULSE 78; RESP 16; TEMP 98.8
== END 2022-08-05 10:54 | disposition home or self-care (01) ==
LOC: FER 04:59
DX: R33.9 Retention of urine, unspecified (principal)
CPT/HCPCS: 99282-25